=== PATIENT | female | born 1960 | race Caucasian/White ===

== ENCOUNTER → 2023-07-12 06:27 | Day surgery (SDC) | payer MEDICARE, SELFPAY | LOC: GI 06:27 | PROVIDERS: ATTENDING PHYSICIAN Specialist; FAMILY PHYSICIAN Family Medicine | DX: R10.11 Right upper quadrant pain (principal); R11.2 Nausea with vomiting, unspecified; K31.7 Polyp of stomach and duodenum; I89.0 Lymphedema, not elsewhere classified | CPT/HCPCS: 43239; 88305; 88342 ==

== ENCOUNTER → 2023-08-04 06:55 | Outpatient (REF) | payer MEDICARE, SELFPAY | LOC: HWRAD 06:55 | PROVIDERS: ATTENDING PHYSICIAN Family Medicine | DX: K82.4 Cholesterolosis of gallbladder (principal) | CPT/HCPCS: 76700 ==

== ENCOUNTER → 2023-10-13 09:01 | Outpatient (REF) | payer MEDICARE, SELFPAY | LOC: RCS 09:01 | PROVIDERS: ATTENDING PHYSICIAN Family Medicine | DX: R07.9 Chest pain, unspecified (principal) | CPT/HCPCS: 93017 ==

== ENCOUNTER → 2023-10-19 10:51 | Outpatient (REF) | payer MEDICARE, SELFPAY | LOC: HWWDC 10:51 | PROVIDERS: ATTENDING PHYSICIAN Family Medicine | DX: Z12.31 Encounter for screening mammogram for malignant neoplasm of breast (principal) | CPT/HCPCS: 77063; 77067 ==

== ENCOUNTER → 2023-11-02 08:57 | Outpatient (REF) | payer MEDICARE, SELFPAY | LOC: RCS 08:57 | PROVIDERS: ATTENDING PHYSICIAN Family Medicine | DX: R07.9 Chest pain, unspecified (principal) | CPT/HCPCS: 93306 ==

== ENCOUNTER 2024-04-29 13:12 | Emergency (ER) | payer MEDICARE, SELFPAY ==
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
[2024-04-29 13:16] VITALS: BP 147/77
== END 2024-04-29 15:46 | disposition home or self-care (01) ==
LOC: EMR 13:12
PROVIDERS: EMERGENCY PHYSICIAN Emergency Medicine; FAMILY PHYSICIAN Family Medicine
DX: S82.041A Displaced comminuted fracture of right patella, initial encounter for closed fracture (principal); W00.0XXA Fall on same level due to ice and snow, initial encounter
CPT/HCPCS: 99283; 73564

== ENCOUNTER → 2024-05-06 13:12 | Day surgery (SDC) | payer MEDICARE, SELFPAY ==
[2024-05-06 15:44] LABS: Hematocrit 37.2 % (37.0-47.0); Hemoglobin 12.3 g/dL (12.0-16.0); Mean Corp Hgb Conc. 33.1 g/dL (33.0-37.0); Mean Corpuscular Hgb 31.4 pg (27.0-31.0); Mean Corpuscular Volume 94.9 fL (81.0-99.0); Mean Platelet Volume 11.1 fL (7.4-10.4); Platelet Count 337 10^3/uL (130-400); Red Blood Cell Count 3.92 10^6/uL (4.20-5.40); Red Cell Dist. Width 12.7 % (11.5-14.5); White Blood Cell Count 10.5 10^3/uL (4.8-10.8)
== END ==
LOC: SDSPAT 13:12
PROVIDERS: ATTENDING PHYSICIAN Student in an Organized Health Care Education/Training Program; FAMILY PHYSICIAN Family Medicine
DX: Z01.810 Encounter for preprocedural cardiovascular examination (principal); Z01.812 Encounter for preprocedural laboratory examination; R00.1 Bradycardia, unspecified
CPT/HCPCS: 93005; 36415; 85027

== ENCOUNTER 2024-05-10 19:16 | Observation (INO) | payer MEDICARE, SELFPAY ==
[2024-05-06 14:16] VITALS: BMI 20.1
[2024-05-10] VITALS (15 sets, daily range): BP systolic 102–149; BP diastolic 47–67; BMI 20.1
[2024-05-10] MEDS: TRANSDERM-SCOP 1 PATCH TRANSDERM (08:43)
[2024-05-10] MEDS: NORMOSOL-R/PLASMALYTE-A 1000 IV ×2 (08:44→20:42)
--- NOTE | 2024-05-10 16:10 | W.IMMPOSTOP ---
Surgical Immed Post Op Note
-
Primary Surgeon: Terrell Jones MD
Assisting Surgeon:
Pre-op Diagnosis: Right patella fracture
Post-op Diagnosis: Right patella fracture
Procedure Performed: Open reduction internal fixation right patella
Anesthesia Type: spinal, general
Specimen / Cultures: none
Estimated Blood Loss: 50mL
Complications: none apparent
Operative Findings: lateral patellar comminution
Tourniquet time: 120 minutes @ 300mm Hg
Implants: [place] 2.0mm 6-hole plates x2; 2.0mm K-wires x2; 18g stainless steel wire
Operative Dictation # [id number]
--- NOTE | 2024-05-10 18:20 | PTCARENOTE ---
Had pt sit bedside. Attempted to have pt stand. Pt tried and struggled multiple times to stand and was unable to get to her feet. Dr. Jones aware
--- NOTE | 2024-05-10 20:03 | PTCARENOTE ---
Pt report called to 2S. Pt reports she is comfortable, and let her partner know her room. Pt has belongings with her.
[2024-05-10] MEDS: NEURONTIN 100 MG PO (21:31)
--- NOTE | 2024-05-10 23:05 | PTCARENOTE ---
Patient due to void. Patient urinated scant amount. Bladder scanned for 472ml and straight cath for 500ml yellow urine. patient tolerated. House HEATER ENGINEER HELPER placed order for a urinalysis to reflux- sample sent.
[2024-05-10 23:07] LABS: Urine Albumin Negative (Neg - Trace); Urine Bilirubin Negative (Negative); Urine Character Clear (Clear); Urine Color Straw; Urine Glucose Negative (Negative); Urine Ketone Negative (Negative); Urine Leukocyte Negative (Negative); Urine Nitrite Negative (Negative); Urine Occult Blood Negative (Negative); Urine Urobilinogen Negative (Neg - 1+)
--- NOTE | 2024-05-10 23:49 | PTCARENOTE ---
At 2008, Patient received from PACU via stretcher s/p ORIF right patella (Dr. Jones) Juvenal wrap and full leg immobilizer in place. Neurovascular checks ordered. Medsurg orders> afebrile, HR 60, RR 14, BP 131/61, pox 99% room air, no c/o pain.
Patient AAOx3. PMH and medications reviewed by this RN and patient. Plan of care discussed. Patient oriented to room. Call win within reach.
[2024-05-11 03:10] VITALS: BP 123/97
[2024-05-11] MEDS: TYLENOL 650 MG PO (05:05)
[2024-05-11 07:30] VITALS: BP 116/60
[2024-05-11] MEDS: NEURONTIN 100 MG PO (08:23)
--- NOTE | 2024-05-11 08:35 | W.PN.ORTHO ---
Today's Communication / Plan
-
Patient doing well POD#1 Right patella ORIF
Plan for D/c home later today
KI to remain in place RLE
WBAT RLE on walker/assistance
PT/OT evals this AM prior to D/c
Early mobilization, as patient cannot take NSAIDs
Dressings to remain 2 weeks
Outpatient Ortho follow-up 2 weeks (Karen)
Assessment
.
Distal Motor Intact: Yes
Dressing:
Clean, dry and intact. Dressings and KI in place RLE
Assessment:
POD#1 Right patella ORIF
Overall doing/feeling well
Calf soft, nontender
Plan
.
Surgery / Date: Right patella ORIF May 07 (Karen)
DVT Prophylaxis: Other (Early mob)
Activity:
Out of bed. WBAT RLE. KI to remain in place
PT/OT
Discharge Plan: Other (per - Home)
Subjective
.
.:
Patient resting comfortably in bed, awaiting breakfast
Vital Signs and Labs
.
Vital Signs and Labs:
Temp Pulse Resp BP Pulse Ox
98 F 68 14 123/97 100
05/11/24 03:10 05/11/24 03:10 05/11/24 03:10 05/11/24 03:10 05/11/24 03:10
--- NOTE | 2024-05-11 08:43 | W.DS.TRANS ---
DC Summary - Civil Rights Attorney
-
Discharge Instructions:
Sleep Apnea Risk Low
Discharge Diagnosis/Procedures Right patella fracture s/p ORIF
Diet No restrictions
Activity With assistance,As tolerated,With Walker
Additional Activity KI to remain, no ranging of the right knee
Driving Restrictions No driving
Bathing Restrictions OK to Shower
Wound Care Dressings to remain until follow-up
Instructions:
Stand-Alone Forms:
Changes to Home Medications: Yes
Discharge Medications:
DC Medications w/original date entered in [facility]dex
cetirizine 10 mg tablet (Zyrtec) 10 mg PO DAILY 04/09/11
diazepam 5 mg tablet 5 mg PO DAILY 12/20/18
levothyroxine 88 mcg tablet 88 mcg PO DAILY 12/20/18
Medical Marijuana 1 dose sublingual DAILY pain & sleep 05/03/24
acetaminophen 500 mg tablet 1,000 mg PO PRN PRN pain 05/03/24
cholecalciferol (vitamin D3) 50 mcg (2,000 unit) capsule (Vitamin D3) 50 mcg PO DAILY 05/03/24
gabapentin 600 mg tablet 1,200 mg PO HS 05/03/24
lansoprazole 30 mg capsule,delayed release 30 mg PO DAILY 05/03/24
rosuvastatin 10 mg tablet 10 mg PO DAILY 05/03/24
sertraline 100 mg tablet (Zoloft) 200 mg PO DAILY 05/03/24
acetaminophen 325 mg tablet 650 mg (2 x 325 mg) PO Q4HPRN PRN mild pain #60 tabs 05/11/24
gabapentin 100 mg capsule 100 mg PO TID Pain #30 caps 05/11/24
tizanidine 2 mg tablet 2 mg PO Q6HPRN PRN muscle spasm #30 tabs 05/11/24
Home Medication Changes
Pending Results: No
[2024-05-11 11:00] VITALS: BP 124/65; PULSE 53; O2SAT 98
[2024-05-11 11:30] VITALS: BP 121/58
--- NOTE | 2024-05-11 11:38 | CM ---
Reviewed the chart notes and spoke with the patient at the bedside. The patient is being admitted under observational status. The WRIGHT letter was provide and explained. The patient had no questions with regards to the letter.
The patient resides with her spouse in a two story home with no steps to enter. The patient reports she will be staying on first level. The patient has a cane and rolling walker in the home. The patient confirmed her pharmacy of choice is [facility]. Discussed VN services. Patient requested VN. Referral sent via [facility]. Patient's spouse to transport home. CM continues to be available to patient/family and is monitoring medical plan for needs at discharge.
Plan: Discharge to home today with VN service.
== END 2024-05-11 12:43 | disposition home health service (06) ==
LOC: 2 SOUTH 19:16
PROVIDERS: Nurse Practitioner Gerontology; ADMITTING PHYSICIAN Student in an Organized Health Care Education/Training Program; FAMILY PHYSICIAN Family Medicine
DX: S82.091A Other fracture of right patella, initial encounter for closed fracture (principal); W00.0XXA Fall on same level due to ice and snow, initial encounter; Y93.01 Activity, walking, marching and hiking; Y92.009 Unspecified place in unspecified non-institutional (private) residence as the place of occurrence of the external cause; E78.2 Mixed hyperlipidemia; E06.3 Autoimmune thyroiditis; F41.1 Generalized anxiety disorder; M48.02 Spinal stenosis, cervical region; M47.12 Other spondylosis with myelopathy, cervical region; R73.03 Prediabetes; Z88.5 Allergy status to narcotic agent; Z88.4 Allergy status to anesthetic agent; Z88.0 Allergy status to penicillin; Z88.8 Allergy status to other drugs, medicaments and biological substances; Z87.820 Personal history of traumatic brain injury; Z79.890 Hormone replacement therapy; Z82.49 Family history of ischemic heart disease and other diseases of the circulatory system
CPT/HCPCS: 27524; 73560; 76000; 81003; 87070; 97116; 97162; 97530; G0378

== ENCOUNTER → 2024-10-02 08:09 | Outpatient (REF) | payer MEDICARE, SELFPAY ==
[2024-10-02 10:10] LABS: Blood Urea Nitrogen 12 mg/dl (7-17); Calcium 10.3 mg/dl (8.4-10.2); Carbon Dioxide 26 mmol/L (22-30); Chloride 106 mmol/L (98-107); Glucose 95 mg/dl (70-99); Potassium 4.7 mmol/L (3.5-5.1); Sodium 143 mmol/L (135-145); eGFR > 60.00
== END ==
LOC: SDSPAT 08:09
PROVIDERS: ATTENDING PHYSICIAN Student in an Organized Health Care Education/Training Program; FAMILY PHYSICIAN Family Medicine
DX: T84.84XA Pain due to internal orthopedic prosthetic devices, implants and grafts, initial encounter (principal)
CPT/HCPCS: 36415; 80048; 87070

== ENCOUNTER 2024-10-10 06:37 | Day surgery (SDC) | payer MEDICARE, SELFPAY ==
[2024-10-02 08:15] VITALS: BMI 21.6
[2024-10-10] VITALS (9 sets, daily range): BP systolic 122–170; BP diastolic 62–100; BMI 21.6
[2024-10-10] MEDS: TRANSDERM-SCOP 1 PATCH TRANSDERM (08:07)
[2024-10-10] MEDS: NORMOSOL-R/PLASMALYTE-A 1000 IV (08:07)
[2024-10-10] MEDS: TYLENOL 1000 MG PO (08:08)
--- NOTE | 2024-10-10 10:32 | W.IMMPOSTOP ---
Surgical Immed Post Op Note
-
Primary Surgeon: Terrell Jones MD
Assisting Surgeon:
Pre-op Diagnosis: right knee painful hardware
Post-op Diagnosis: right knee painful hardware
Procedure Performed: removal of hardware right patella
Anesthesia Type: spinal with sedation
Specimen / Cultures: none
Estimated Blood Loss: 5mL
Complications: none apparent
Operative Findings: no gapping of patella fracture with flexion to 90 degrees
Tourniquet time: 76 minutes at 250 mmHg
Operative dictation #: [id number]
== END 2024-10-10 13:00 | disposition home or self-care (01) ==
LOC: SDS 06:37
PROVIDERS: ATTENDING PHYSICIAN Student in an Organized Health Care Education/Training Program; FAMILY PHYSICIAN Family Medicine
DX: T84.84XA Pain due to internal orthopedic prosthetic devices, implants and grafts, initial encounter (principal); Y83.1 Surgical operation with implant of artificial internal device as the cause of abnormal reaction of the patient, or of later complication, without mention of misadventure at the time of the procedure
CPT/HCPCS: 20680; 73560; 76000

== ENCOUNTER → 2024-12-18 14:15 | Outpatient (REF) | payer MEDICARE, SELFPAY | LOC: PAVMRI 14:15 | PROVIDERS: ATTENDING PHYSICIAN Student in an Organized Health Care Education/Training Program; FAMILY PHYSICIAN Family Medicine | DX: S82.041D Displaced comminuted fracture of right patella, subsequent encounter for closed fracture with routine healing (principal) | CPT/HCPCS: 73721 ==

== ENCOUNTER → 2025-02-23 07:56 | Outpatient (REF) | payer MEDICARE, SELFPAY | LOC: PAVMRI 07:56 | PROVIDERS: ATTENDING PHYSICIAN Anesthesiology Pain Medicine; FAMILY PHYSICIAN Family Medicine | DX: M54.12 Radiculopathy, cervical region (principal); M48.02 Spinal stenosis, cervical region | CPT/HCPCS: 72156; A9575 ==